=== PATIENT | male | born 1965 | race Caucasian/White ===

== ENCOUNTER 2018-08-10 10:35 | Emergency (ER) | payer OTHER ==
[~2018-08-10] VITALS: Ht 170.2 cm; Wt 99.8 kg
[~2018-08-10 10:35] MED LIST: PRILOSEC 20 MG20 MG PO; PROZAC10 MG PO; ROBAXIN500 MG PO; WELLBUTRIN SR150 MG PO
[2018-08-10] MEDS ORDERED: NAPROSYN500 MG PO (12:11)
[2018-08-10] MEDS ORDERED: FLEXERIL PO (12:11)
[2018-08-10 12:23] VITALS: BP 138/84
== END 2018-08-10 12:24 | disposition home or self-care (01) ==
LOC: M.ERS 10:35
DX: M54.6 Pain in thoracic spine (principal); R51 Headache; I10 Essential (primary) hypertension; V49.09XA Driver injured in collision with other motor vehicles in nontraffic accident, initial encounter; Y93.89 Activity, other specified; Y92.89 Other specified places as the place of occurrence of the external cause; Y99.8 Other external cause status